=== PATIENT | male | born 1980 | race Caucasian/White ===

== ENCOUNTER 2018-08-21 12:08 | Emergency (ER) | payer OTHER ==
[~2018-08-21 12:08] MED LIST: ACNE MED; CLARITIN
--- NOTE | 2018-08-21 12:19 | ER Report ---
History and Physical Time Seen By MD: 12:19 HPI/ROS CHIEF COMPLAINT: Finger laceration HISTORY OF PRESENT ILLNESS: 38-year-old male patient presents to emergency room with complaint of laceration to the second and third finger on the right hand. 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 He states that the meat became jammed and so he hit it down with the handle. When he did that his finger slipped down and got into the blade. He did cut the palmar aspect of the right second finger and the distal tip of the right third finger. Patient states that his TDAP was as done in the fall of last year. He denies any numbness or tingling. He denies any difficulty moving his fingers. Allergies: Coded Allergies: Penicillins (Unverified Allergy, Mild, 06/22/11) Home Meds Active Scripts Sulfamethoxazole/Trimet 800-160 Mg Tab (BACTRIM DS TABLET) 1 Each Tablet, 1 TAB PO Q12H, #10 TAB Prov:JOSÉ MIGUEL BONILLA DAJUAN 08/21/18 Reported Medications [None] No Conflict Check, 0 Refills 06/22/11 Past Medical/Surgical History Patient has a past medical history of asthma, alcohol use. Patient has surgical history of sinus surgery. Reviewed Nurses Notes: Yes Hx Smoking: No Hx Alcohol Use: Yes (5 PER WEEK) Constitutional Vital Sign - Last 24 Hours 08/21/18 08/21/18 12:50 13:15 Temp 98.6 Pulse 64 75 Resp 16 16 B/P (MAP) 135/84 130/80 (97) Pulse Ox 95 95 O2 Delivery Room Air Room Air Physical Exam General appearance: Alert no distress. Respiratory: Chest is non tender, lungs are clear to auscultation. Cardiac: Regular rate and rhythm. Skin: Patient of laceration to right second and third fingers. The second finger patient cut a flap skin paddle on the third finger has a cut of the distal tip. Patient has good mobility, good sensation. There is slight bleeding to the tip of the third finger. DIFFERENTIAL DIAGNOSIS: After history and physical exam differential diagnosis was considered for laceration. Medical Decision Making ED Course/Re-evaluation ED Course Patient was admitted to examined, history and physical were obtained. Different ial diagnoses were considered. I examination lungs are clear, heart is regular. Patient does have a laceration to the right index and third finger. The fingers were anesthetized, cleaned and repaired described below. We'll still appear to go into the subcutaneous tissue. Patient had no weakness with flexion and extension. ON put him on antibiotics for short. Time to prevent infection. He is to follow-up with his primary care provider in 7-10 days to have sutures removed. Patient and his verbalized understanding and agreement with plan. Procedure: Laceration repair. Verbal consent was obtained from the patient. The 2 cm laceration on the right third finger, 3 cm laceration of the right second finger was anesthetized in the usual fashion. The wound was scrubbed, draped and explored to its base with a gloved finger. There were no deep structures involved. No tendon injury was identified. The wound was repaired with 4 and 6 simple interrupted sutures using 5-0 Prolene material. The wound repair was simple. The procedure was performed by myself. Decision to Disposition Date: Aug 21, 2018 Decision to Disposition Time: 13:30 Depart Departure Latest Vital Signs Vital Signs Date Time Temp Pulse Resp B/P (MAP) Pulse Ox O2 Delivery O2 Flow Rate FiO2 08/21/18 13:15 75 16 130/80 (97) 95 Room Air 08/21/18 12:50 98.6 Impression: Primary Impression: Finger laceration Additional Impression: Laceration of middle finger Condition: Improved Disposition: HOME OR SELF-CARE New Scripts Sulfamethoxazole/Trimet 800-160 Mg Tab (BACTRIM DS TABLET) 1 Each Tablet 1 TAB PO Q12H, #10 TAB Prov: JOSÉ MIGUEL BONILLA DAJUAN 08/21/18 Patient Instructions: Finger Laceration (ED) Additional Instructions: Keep wound dry for 48 hours. Follow up with your primary care provider in the next 7-10 days to have sutures removed. Monitor for signs of infection; redness, swelling, heat, discharge, increasing pain or red streaking. Take Tylenol or Ibuprofen as needed for pain. Return to the ER with any concerns. You may change dressing as needed. Problem Qualifiers Primary Impression: Finger laceration Encounter type: initial encounter Finger: index finger Damage to nail status: without damage Foreign body presence: without foreign body Laterality: right Qualified Codes: S61.210A - Laceration without foreign body of right index finger without damage to nail, initial encounter Additional Impression: Laceration of middle finger Encounter type: initial encounter Damage to nail status: without damage Foreign body presence: without foreign body Laterality: right Qualified Codes: S61.212A - Laceration without foreign body of right middle finger without damage to nail, initial encounter JOSÉ MIGUEL BONILLA Aug 21, 2018 12:19
[2018-08-21] MEDS ORDERED: DIPHTH/TETANUS/ACEL. PERTUSSIS IM ONLY ONE ×2 (12:25→12:49)
[2018-08-21] MEDS ORDERED: SULF-198 PO (13:12)
[2018-08-21 13:15] VITALS: BP 130/80
== END 2018-08-21 13:30 | disposition home or self-care (01) ==
LOC: ER 12:14
DX: S61.210A Laceration without foreign body of right index finger without damage to nail, initial encounter (principal); S61.212A Laceration without foreign body of right middle finger without damage to nail, initial encounter
CPT/HCPCS: 96374; 99283; 99284